=== PATIENT | male | born 1990 | race Two or more races ===

== ENCOUNTER 2024-06-03 02:54 | Emergency (ER) | payer MEDICAID, SELFPAY ==
[2024-06-03 03:00] VITALS: BP 139/84; PULSE 74; RESP 19; TEMP 36.6; O2SAT 98; BMI 25.8
--- NOTE | 2024-06-03 03:01 | EDNOTE_ITS ---
ED Abdominal Pain RME/HPI General Chief Complaint: Abdominal Pain Stated complaint: ABD PAIN RADIATING TO BACK Time seen by provider: 06/03/24 02:56 Arrival date/time: 06/03/24 02:54 RME / HPI RME / HPI narrative: This section includes all my notes and documentations, including HPI, PE, and ED course. Indra Vee MD HPI: 33-year-old male here with about 24-hour history of abdominal pain. He reports diffuse pain, difficult to localize further. The pain radiates into the back. Has trouble describing the quality and quantity of the pain. Concerned about exacerbating factors or relieving factors. Has nausea. Eating normally. No fever or chills. No urinary symptoms. No history of abdominal surgery. No other complaints. ROS: All negative except as documented in HPI. Physical Exam: General: Alert and oriented. Appears uncomfortable. Eyes: Conjunctivae and lids clear. ENT: No nasal congestion. Neck: Supple. Heart: RRR. Lungs: No respiratory distress. Good air movement. No rhonchi, wheezing, rales. Abdomen: Soft with diffuse tenderness, difficult to localize. Normal bowel sounds. No distension. No rebound or guarding. Back: No CVA tenderness. Skin: Warm and dry. Neuro: Alert and oriented X 3. I reviewed all diagnostic test results. Blood tests and urine tests remarkable for GLU 278. At this point, diagnoses include abdominal pain hyperglycemia. Treatment here included IV fluid, Zofran, Toradol, morphine, insulin. Abdominal CT pending. At 6 AM on 06/03/24, the care of the patient was transferred to Dr. PEREZ. Indra Vee MD Related Data Previous Rx's ?Medication ?Instructions ?Recorded miconazole nitrate 2 % vaginal See Rx Instructions .Ro karthik 01/19/20 cream (Miconazole-7) .COMPLEX #45 grams ibuprofen 800 mg tablet 800 mg PO TID PRN pain #30 t abs 03/05/20 fluconazole 150 mg tablet 150 mg PO Q3D 2 doses #2 tab s 05/10/20 (Diflucan) acetaminophen 650 mg 650 mg PO Q8H PRN fever or p ain 05/09/21 tablet,extended release #30 tabs ibuprofen 600 mg tablet 600 mg PO Q8H PRN fever or p ain 05/09/21 #30 tabs Allergies Allergy/AdvReac Type Severity Reaction Status Date / Time No Known Allergies Allergy Verified 06/03/24 02:55 Course Quality Measures none Orders Category Date Time Status Glucose [Bedside Blood Glucose] NOW Care 06/03/24 03:59 Active Saline [Insert IV] NOW Care 06/03/24 03:04 Active Straight [In and Out Catheter] X1 Care 06/03/24 03:[address] abdomen pelvis wo con Stat Exams 06/03/24 03:05 Ordered ABG [Arterial Blood Gas] Stat Lab 06/03/24 04:35 Received Amylase Stat Lab 06/03/24 03:24 Completed Beta Hydroxybutyrate Stat Lab 06/03/24 04:00 Ordered Bilirubin,Direct Stat Lab 06/03/24 03:24 Completed CBC Stat Lab 06/03/24 03:24 Completed CMP [Comprehensive Metabolic Panel] Stat Lab 06/03/24 03:24 Completed Lactate (Lactic Acid) Stat Lab 06/03/24 04:00 Ordered Lipase Stat Lab 06/03/24 03:24 Completed Magnesium Stat Lab 06/03/24 03:24 Completed UA, C/S IF [Urinalysis, C/S if Indicated] Stat Lab 06/03/24 03:30 Completed Insulin Regular Med 06/03/24 04:03 Discontinued 5 unit IV X1 ONE Ketorolac Inj [Toradol Inj] Med 06/03/24 03:05 Discontinued 30 mg IVP X1 ONE Morphine Inj Med 06/03/24 03:05 Discontinued 2 mg IVP X1 ONE Ondansetron Inj [Zofran Inj] Med 06/03/24 03:05 Discontinued 4 mg IV X1 ONE Sodium Chloride 0.9% 1000 ml [Ns] 1,000 ml Med 06/03/24 03:05 Discontinued IV 999 mls/hr Vital Signs Vital signs: Vital Signs Temperature 97.8 F 06/03/24 03:00 Pulse Rate 74 06/03/24 03:00 Respiratory Rate 19 06/03/24 03:00 Blood Pressure 139/84 H 06/03/24 03:00 Pulse Oximetry (%) 98 06/03/24 03:00 Oxygen Delivery Method Room Air 06/03/24 03:00 Abdominal Pain MDM Patient data External records reviewed:: [facility] previous records Clinical information provided by:: patient and spouse Social determinants that could affect healthcare access:: none Patient has the following chronic illnesses:: DM, no medication for a couple of years How is presenting disease/condition affected by chronic disease/condition?: exacerbated by Evaluation data The following diagnostics were reviewed and interpreted by me:: lab results Lab and/or radiology exams considered but not ordered:: None Interpretation Summary: Complete diagnostics pending Medications / Prescriptions Medications or Prescriptions considered but not ordered:: None Medication administrations:: Medication Administration History Discontinued Medications Sodium Chloride (Ns) 1,000 mls @ 999 mls/hr IV .Q1H1M ONE Stop: 06/03/24 04:05 Last Admin: 06/03/24 03:29 Dose: 999 mls/hr Documented By: LAUREN Insulin Human Regular (Insulin Hum Regular 1 Unit/0.01 Ml (Per Unit)) 5 unit IV X1 ONE Stop: 06/03/24 04:04 Last Admin: 06/03/24 04:07 Dose: 5 unit Documented By: LAUREN Co-signed By: SAVANAH Ketorolac Tromethamine (Ketorolac Inj 30 Mg/Ml Vial) 30 mg IVP X1 ONE Stop: 06/03/24 03:06 Last Admin: 06/03/24 03:29 Dose: 30 mg Documented By: LAUREN Morphine Sulfate (Morphine Sulf Inj 10 Mg/Ml Vial) 2 mg IVP X1 ONE Stop: 06/03/24 03:06 Last Admin: 06/03/24 03:30 Dose: 2 mg Documented By: LAUREN Ondansetron HCl (Ondansetron Inj 2 Mg/Ml Inj 2 Ml) 4 mg IV X1 ONE; Protocol Stop: 06/03/24 03:06 Last Admin: 06/03/24 03:30 Dose: 4 mg Documented By: LAUREN IV fluid, Zofran, Toradol, morphine, insulin Consultations Consultation(s) initiated? (list below): No Diagnosis Differential diagnosis abdominal pain: abdominal pain, acute appendicitis, calculus of kidney, constipation, diverticulitis, gastroenteritis, pancreatitis and small bowel obstruction Most likely diagnosis given after review of the tests above:: Complete diagnostics pending Admission Indicated Admission indicated?: not indicated Explain why admission is indicated or not indicated:: Complete diagnostics pending Admission Request Was there a request for admission?: No Disposition Plan Disposition Plan: other (specify) (Care of the patient was transferred to Dr. PEREZ.) Discharge Plan Prescriptions/Referrals Prescriptions/Med Rec: No Action ibuprofen 800 mg tablet 800 mg PO TID PRN (Reason: pain) Qty: 30 0RF fluconazole [Diflucan] 150 mg tablet 150 mg PO Q3D Qty: 2 0RF Rx Instructions: may repeat second dose 72 hrs after first dose if symptoms persist miconazole nitrate [Miconazole-7] 2 % cream See Rx Instructions .ROUTE .COMPLEX Qty: 45 0RF Rx Instructions: Instructions in [place] please pull penis skin back apply small amount to penis BID x 7 days acetaminophen 650 mg tablet extended release 650 mg PO Q8H PRN (Reason: fever or pain) Qty: 30 0RF Rx Instructions: swallow whole; do not chew/break/dissolve/open ibuprofen 600 mg tablet 600 mg PO Q8H PRN (Reason: fever or pain) Qty: 30 0RF Referrals: No Primary/Family,Physician [Primary Care Provider] - In 1 week Problem List Clinical Impression: Abdominal pain Patient/Caregiver Discharge Instructions Print Language: [place]
--- NOTE | 2024-06-03 03:05 | XR_ITS ---
Examination: CT abdomen and pelvis without contrast. Coronal 3-D reconstructions. Sagittal 2-D reconstructions. Date and time of exam:June 03, 2024 at 0605 hours Comparison July 18, 2022 INDICATIONS: Abdominal pain radiating to the back beginning 24 hours ago CTDI: vol (mGy): 6.67 DLP: (mGycm): 409 Technique: Axial images of the abdomen have been obtained, 3 mm slice thickness Intravenous contrast material has not been administered. Low dose protocols were performed. One or more of the following dose reduction techniques were used; automated exposure control, adjustment of the mA and/or KV according to patient size, use of iterative reconstruction technique. Findings: No focal liver or splenic lesions No gallstones No pancreatic or adrenal mass No renal or ureteral calculi, no hydronephrosis Aorta normal size Normal appendix Scattered colonic diverticulosis, no diverticulitis Urinary bladder are intact No prostatomegaly The osseous structures are intact L4-L5 4 mm intramammary disc bulge IMPRESSION: No renal or ureteral calculi, no hydronephrosis Normal appendix Colonic diverticulosis, no diverticulitis L4-L5 4 mm several lumbar disc bulge
[2024-06-03] MEDS: KETOROLAC INJ 30 MG/ML VIAL IVP (03:29)
[2024-06-03] MEDS: SODIUM CHLORIDE 0.9% 1000 ML 1,000 ML 999 ML IV (03:29)
[2024-06-03] MEDS: ONDANSETRON INJ 2 MG/ML INJ 2 ML 4 MG IV (03:30)
[2024-06-03] MEDS: MORPHINE SULF INJ 10 MG/ML VIAL 2 MG IVP (03:30)
[2024-06-03 03:35] LABS: Collection Type, Urine Clean Catch; RBC,Urine 0 /hpf (0-3); Squamous Epithelial Cell,Urine 0 /hpf (0-5)
[2024-06-03 03:37] LABS: Basophils % (Auto) 1 % (0-2.5); Eosinophils # (Auto) 0.2 Thou/mm3 (0.0-0.5); Eosinophils % (Auto) 4 % (0-10); Hematocrit 40.6 % (41.0-53.0); Hemoglobin 14.7 g/dL (13.5-16.0); Immature Granulocytes % (Auto) 0 % (0-0); Immature Granulocytes Auto 0.01 Thou/mm3 (0.00-0.00); Lymphocytes # (Auto) 2.1 Thou/mm3 (1.0-4.8); Lymphocytes % (Auto) 36 % (10-50); Mean Corpuscular HGB Conc 36.2 g/dl (31.0-37.0); Mean Corpuscular Hemoglobin 29.1 pg (25.0-35.0); Mean Corpuscular Volume 80 fL (80-100); Monocytes # (Auto) 0.4 Thou/mm3 (0.0-0.8); Monocytes % (Auto) 7 % (0-12); Neutrophils # (Auto) 3.2 Thou/mm3 (1.8-7.7); Neutrophils % (Auto) 53 % (37-80); Nucleated Red Blood Cell % 0 /100 WBC (0); Platelet Count 184 Thou/mm3 (140-440); RDW Standard Deviation 36.3 fL (35.1-43.9); Red Blood Count 5.05 Miln/mm3 (4.50-5.90); White Blood Count 5.9 Thou/mm3 (3.8-10.6)
[2024-06-03 03:42] LABS: Bilirubin,Urine Negative (Negative); Blood,Urine Negative (Negative); Clarity,Urine Clear (Clear/Hazy); Color,Urine Lt-Yellow (Lt Yel-Yel); Culture Indicated,Urine Not Indicated; Glucose, Urine 4+ (Negative); Ketones,Urine Negative (Negative); Leukocyte Esterase,Urine Negative (Negative); Nitrite,Urine Negative (Negative); Protein,Urine Negative (Neg - Trace); Specific Gravity,Urine 1.037 (1.001-1.035); Urobilinogen,Urine Negative mg/dL (0.0-1.0); WBC,Urine < 1 /hpf (0-5)
[2024-06-03 04:01] LABS: Alanine Aminotransferase 31 U/L (10-49); Albumin/Globulin Ratio 1.4 (1.2-2.2); Alkaline Phosphatase 148 U/L (46-116); Amylase 79 U/L (30-118); Anion Gap 8 (7-16); Aspartate Amino Transferase 17 U/L (0-34); BUN/Creatinine Ratio 17 Ratio (12-20); Bilirubin,Direct < 0.1 mg/dL (0.0-0.3); Bilirubin,Total 0.3 mg/dL (0.3-1.2); Blood Urea Nitrogen 12 mg/dL (9-23); Calcium 8.8 mg/dL (8.3-10.6); Calcium (Corrected) 8.8 mg/dL (8.5-10.1); Carbon Dioxide 26.8 mMol/L (20.0-31.0); Chloride 103 mMol/L (98-107); Creatinine (Component) 0.7 mg/dL (0.6-1.3); Estimated Creatinine Clearance 145.2 mL/min (>60); Globulin 2.9 gm/dL (2.3-3.5); Glucose 278 mg/dL (74-106); Lipase 47 U/L (12-53); Magnesium 1.8 mg/dL (1.6-2.6); Osmolality,Calculated 285 (275-295); Potassium 3.7 mMol/L (3.4-5.1); Sodium 138 mMol/L (136-145); Total Protein 6.9 gm/dL (5.7-8.2); eGFR > 60 See Note
[2024-06-03] MEDS: INSULIN HUM REGULAR 1 UNIT/0.01 ML (PER UNIT) 5 UNIT IV (04:07)
[2024-06-03 04:41] LABS: Base Excess 1 (-3-3); HCO3 25 mEq/L (20-26); Inspired Oxygen, FIO2 21 %; O2 Saturation 98 % (91-98); PCO2 37 mmHg (32.0-48.0); PO2 119 mmHg (83-108); pH, Arterial 7.44 (7.35-7.45)
[2024-06-03 04:42] LABS: Allen Test Performed/OK; Puncture Site Left Radial
[2024-06-03 05:06] LABS: Lactate (Lactic Acid) 1.5 mMol/L (0.4-2.0)
[2024-06-03 05:10] LABS: Beta Hydroxybutyrate 0.1 mmol/L (<0.6)
[2024-06-03 06:15] VITALS: BP 141/88; PULSE 89; RESP 19; TEMP 37.1; O2SAT 99
--- NOTE | 2024-06-03 06:27 | PD.EDADDENDU ---
Emergency Room Addendum Addendum Narrative: 0600: Care assumed from Dr. Vee, the previous shift emergency physician. Past medical, surgical, social and family history reviewed. Vitals and home medications reviewed. I will assume the care of the patient at this time. Please refer to the emergency department record for history and examination from initial visit.? Physical exam by me shows patient under no acute distress at this time. 0930: Patient remains clinically stable throughout the emergency department visit. Re-assessment at the time of disposition demonstrates that the patient is in no acute distress. We reviewed all the results, analysis, and treatment plans. Patient is amenable to discharge. Strict return precautions were outlined. Patient was discharged in stable condition. Diagnosis: -Abdominal pain -Hyperglycemia RADIOLOGY Procedure(s): CT abdomen pelvis wo [facility] Accession Number(s): [id number] cc: Indra Vee MD; Russel Dick MD; NO PRIMARY/FAMILY,PHYSICIAN~ Examination: CT abdomen and pelvis without contrast. Coronal 3-D reconstructions. Sagittal 2-D reconstructions. Date and time of exam:June 03, 2024 at 0605 hours Comparison July 18, 2022 INDICATIONS: Abdominal pain radiating to the back beginning 24 hours ago CTDI: vol (mGy): 6.67 DLP: (mGycm): 409 Technique: Axial images of the abdomen have been obtained, 3 mm slice thickness Intravenous contrast material has not been administered. Low dose protocols were performed. One or more of the following dose reduction techniques were used; automated exposure control, adjustment of the mA and/or KV according to patient size, use of iterative reconstruction technique. Findings: No focal liver or splenic lesions No gallstones No pancreatic or adrenal mass No renal or ureteral calculi, no hydronephrosis Aorta normal size Normal appendix Scattered colonic diverticulosis, no diverticulitis Urinary bladder are intact No prostatomegaly The osseous structures are intact L4-L5 4 mm intramammary disc bulge IMPRESSION: No renal or ureteral calculi, no hydronephrosis Normal appendix Colonic diverticulosis, no diverticulitis L4-L5 4 mm several lumbar disc bulge Dictated By: Russel Dick MD
[2024-06-03 07:30] VITALS: BP 121/71; PULSE 72; RESP 16; O2SAT 100
[2024-06-03 07:58] VITALS: BP 121/71; PULSE 70; RESP 18; TEMP 36.5; O2SAT 97
[2024-06-03 09:45] LABS: Glucose Estimated Average 258 mg/dL (80-131); Hemoglobin A1C 10.6 % Hgb (4.8-6.0)
[2024-06-03 10:08] VITALS: BP 120/76; PULSE 68; RESP 18; TEMP 36.6; O2SAT 98
== END 2024-06-03 10:15 | disposition home or self-care (01) ==
PROVIDERS: Emergency Medicine; Emergency Provider Emergency Medicine
DX: K57.30 Diverticulosis of large intestine without perforation or abscess without bleeding (principal); R73.9 Hyperglycemia, unspecified
CPT/HCPCS: 36415; 36600; 74176; 80053; 81001; 82010; 82150; 82248; 82803; 83036; 83605; 83690; 83735; 85025; 96361; 96374; 96375; 99284; J1815; J1885; J2270; J2405; J7030